=== PATIENT | male | born 1975 | race Caucasian/White ===

== ENCOUNTER → 2016-06-25 | Day surgery (SDC) | payer OTHER ==
[~2016-06-25] MED LIST: BACITRACIN 50,000 UNITS/10 ML SYR IRR ONE; BUPIVACAINE/EPI 0.5% 30 ML SDV ONE; CLINDAMYCIN 600 MG/DEXTROSE 50 ML IV ONE; DEXAMETHASONE 4 MG/ML VIAL ONE; LIDO/EPI 2% **for epidural** 20 ML SDV ONE; LIDOCAINE 1% 5 ML SDV ID PRN; LIDOCAINE 1% 5 ML SDV ONE; LIDOCAINE 2% 5 ML SDV ONE; LIDOCAINE 2% JELLY 5 ML TUBE ONE; LR 1,000 ML IV ONE; MIDAZOLAM 2 MG/2 ML VIAL ONE; ONDANSETRON 4 MG/2 ML VIAL ONE; OXYCODONE/APAP 5/325 TAB ONE; OXYMETAZOLINE 30 ML NASAL SPRAY EACHNARE ONE; PROPOFOL 200 MG/20 ML VIAL ONE; ROCURONIUM 50 MG/5 ML VIAL ONE; fentaNYL 100 MCG/2 ML INJ ONE
--- NOTE | 2016-06-25 09:21 | POSTOPPROG ---
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
--- NOTE | 2016-06-25 09:36 | GOP ---
[f rep st] OPERATIVE REPORT DATE OF OPERATION: 06/25/2016 SURGEON: Joe Quintero DDS STUCCO LABORER: Tripp Quintero DDS ANESTHESIA: Nasotracheal general anesthesia. ANESTHESIOLOGIST: Mac Whitlock MD. PREOPERATIVE DIAGNOSIS: 1. Full bony impacted and nonfunctional tooth #1, 16, 17, 32. 2. 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 POSTOPERATIVE DIAGNOSIS: 1. Full bony impacted and nonfunctional tooth #1, 16, 17, 32. 2. 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 3. 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 PROCEDURE PERFORMED: 1. Extraction of full bony impacted tooth #1, 16, 17, 32. 2. Socket preservation with a combination of mineross bone graft, OCS-B xenograft and allograft putty. 3. Closure of oral antral fistula, site #16, with HeliCote tape. FINDINGS: 1. 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 2. Exposed inferior alveolar nerve site #32. ESTIMATED BLOOD LOSS: Minimal. INDICATIONS: The patient is a 41-year-old male, with a past medical history significant for coronary artery disease and stent placement, approximately 12 months ago. He presented with full bony impacted wisdom teeth causing periodontal bone loss on the distal of tooth #18 and 31. In clinic yesterday, risks, benefits, complications, alternatives of the procedure were discussed in detail, signed and verbal consent were obtained. The patient was given postoperative prescriptions as well as written postoperative instructions. He presented to the hospital today, n.p.o., and with an escort. DESCRIPTION OF PROCEDURE: The patient was transported to the OR and onto the operating room table. Following successful nasotracheal intubation, the patient was draped, throat screen was placed. 6 mL of a mixture of 0.5% Marcaine with 1:200,000 epinephrine and 2% lidocaine with 1:100,000 epinephrine was administered in bilateral inferior alveolar nerve block, long buccal block, greater palatine block, in infiltrative fashion. Throat screen and bite block were placed. First attention was turned to tooth #1. A #15 blade was used to make a 3rd molar releasing incision. Subperiosteal dissection was performed. Overlying and surrounding buccal and distal bone was removed with a #9 periosteal elevator. The tooth was elevated and extracted with a straight elevator. The full-thickness mucoperiosteal flap was reapproximated without suturing. Next, attention was then turned to tooth #16. Again, a #15 blade was used to make a 3rd molar releasing incision. Subperiosteal dissection was performed with a #9 periosteal elevator. The overlying and surrounding buccal and distal bone was removed with a #9, and the tooth was elevated and delivered. A portion of the maxillary tuberosity was delivered with the tooth. After removal of the tooth, the extraction site was examined, and an oral antral fistula was noted. The extraction site was packed with HeliCote tape, and the full-thickness mucoperiosteal flap was tightly reapproximated with four separate 4-0 chromic gut interrupted sutures. Next, attention was turned to tooth #17. A distal buccal 3rd molar releasing incision was performed with a #15 blade. Subperiosteal dissection was performed with a #9 elevator. The overlying and surrounding buccal and distal bone was removed with a straight fissure bur under copious irrigation. The tooth was then sectioned with a surgical handpiece and a copious irrigation, and the mesial and distal half of the tooth was elevated and delivered individually. Granulation tissue on the distal aspect of tooth #18, was curetted out of the extraction site, and the extraction site and full-thickness mucoperiosteal flap were irrigated with normal saline impregnated with bacitracin. The bone graft material was rehydrated with the bacitracin- impregnated normal saline, and was packed into the extraction site. The bone graft was then covered with HeliCote and the full-thickness mucoperiosteal flap was reapproximated with 4-0 chromic gut suture. Next, attention was turned to tooth #32. Again, a distal buccal 3rd molar releasing incision was performed and the sulcular incision was extended anteriorly to the mesial of tooth #30. Subperiosteal dissection was performed with a #9 periosteal elevator. Overlying buccal and distal surrounding bone was removed with a surgical handpiece under copious irrigation. The crown of the tooth was sectioned off and then was divided into 2 separate pieces and crown fragments were removed. Next, the root was then sectioned into 2 pieces, and the mesial and distal half of the root was carefully elevated and delivered. The inferior alveolar nerve could be visualized at the apex of the extraction site along where the crown of the tooth was lying. The inferior alveolar nerve did not appear to be damaged and was not bleeding. Granulation tissue on the distal of tooth #31 was removed. The full-thickness mucoperiosteal flap and extraction site were irrigated with the bacitracin- impregnated normal saline and bone graft was packed into the extraction site and covered with HeliCote. The full-thickness mucoperiosteal flap was reapproximated with 4-0 chromic gut suture. Next, the throat screen and bite block were removed. Hemostatic gauze sponges were placed. The patient was allowed to awaken from anesthesia and transported to the PACU in stable condition. DISPOSITION: The patient will be discharged to home today. He will follow up in 2 weeks for a postoperative appointment. /[id number]/MODL MTDD
== END | disposition home or self-care (01) ==
LOC: FSGY 05:42
PROVIDERS: ATTEND Dentist Oral and Maxillofacial Surgery
DX: K01.1 Impacted teeth (principal); M85.88 Other specified disorders of bone density and structure, other site; K04.6 Periapical abscess with sinus
CPT/HCPCS: C1713; C1762; C1763; J1100; J2250; J2405; J2704; J3010